=== PATIENT | female | born 1990 | race Caucasian/White ===

== ENCOUNTER 2016-06-28 18:17 | Emergency (ER) | payer OTHER ==
[~2016-06-28] VITALS: Ht 152.4 cm; Wt 79.0 kg
[2016-06-28 18:30] VITALS: Ht 152.4 cm; Wt 79.0 kg
[2016-06-28] MEDS ORDERED: HYDROCODONE/APAP (5/325) TAB PO ONE (21:00)
[2016-06-28] MEDS ORDERED: SOD CHLORIDE 0.9% 1,000 ML IV ONE (21:00)
[2016-06-28] MEDS ORDERED: ACETAMINOPHEN 500 MG TAB PO STA ×2 (21:02→21:26)
[2016-06-28 21:25] LABS: URINE BLOOD (Dip) POC Trace-intact (NEGATIVE)
[2016-06-28] MEDS ORDERED: ACETAMINOPHEN 500 MG TAB ONE (21:27)
[2016-06-28 22:46] VITALS: BP 104/52; TEMP 99.2
[2016-06-28] MEDS ORDERED: SULF1TAB31 PO (22:51)
[2016-06-28] MEDS ORDERED: CEPH-443 PO (22:51)
[2016-06-28] MEDS ORDERED: HYDR-906 PO (22:52)
--- NOTE | 2016-06-28 23:32 | ERD ---
ER Documentation Chief Complaint Date/Time DATE: 06/28/16 TIME: 23:29 Chief Complaint swelling/pain left side of vaginal area x 2 days HPI Patient is a 25-year-old female who presents to the ED with vaginal swelling 2 days. She states that she has erythema and swelling to the left side of her outer vagina. She denies fever or chills. Denies abdominal pain, nausea, vomiting or diarrhea. She states that she has never had this in the past. She denies dysuria urgency. Denies back pain. She states that she is sexually active with her female partner. Denies abnormal vaginal discharge. Denies rashes. Denies headache or dizziness. No other complaints. ROS All systems reviewed and are negative except as per history of present illness. Medications Home Meds Active Scripts Hydrocodone/Acetaminophen (Duncan 5-325 Tablet) 1 Each Tablet, 1 TAB PO Q6H Y for PAIN, #7 TAB Prov:BIANCA JARAMILLO PA-C 06/28/16 Cephalexin* (Keflex*) 500 Mg Capsule, 500 MG PO QID for 5 Days, CAP Prov:BIANCA JARAMILLO PA-C 06/28/16 Sulfamethoxazole/Trimethoprim (Bactrim Ds Tablet) 1 Each Tablet, 1 EACH PO BID for 5 Days, TAB Prov:BIANCA JARAMILLO PA-C 06/28/16 Allergies Allergies: Coded Allergies: No Known Drug Allergies (Verified Allergy, Unknown, 06/28/16) PMhx/Soc Medical and Surgical Hx: pt denies Medical Hx, pt denies Surgical Hx History of Surgery: No Anesthesia Reaction: No Hx Neurological Disorder: No Hx Respiratory Disorders: No Hx Cardiac Disorders: No Hx Psychiatric Problems: No Hx Miscellaneous Medical Probl: No Hx Alcohol Use: No Hx Substance Use: Yes (MARIJUANA "OCCASSIONALLY") Hx Tobacco Use: No Smoking Status: Never smoker FmHx Family History: No coronary disease, No diabetes, No other Physical Exam Vitals Vital Signs Date Time Temp Pulse Resp B/P Pulse Ox O2 Delivery O2 Flow Rate FiO2 06/28/16 22:46 99.2 104/52 99 Room Air 06/28/16 18:30 100.8 121 20 128/82 100 Physical Exam GENERAL: Well-developed, well-nourished female. Appears in no acute distress. HEAD: Normocephalic, atraumatic. EYES: Pupils are equally reactive bilaterally. EOMs grossly intact. No conjunctival erythema. ENT: Moist mucous membranes. No uvula deviation. No kissing tonsils. No exudates. NECK: Supple. No lymphadenopathy or thyromegaly. No meningismus. negative kernig. negative brudinski. LUNG: Clear to auscultation bilaterally. No rhonchi, wheezing, rales or coarse breath sounds. HEART: Regular rate and rhythm. No murmurs, rubs or gallops. : Erythematous and swollen labia majora. With mild induration and fluctuance. Extremities: Equal pulses bilaterally. No peripheral clubbing, cyanosis or edema. No unilateral leg swelling. NEUROLOGIC: Alert and oriented. Moving all four extremities. 5/5 strength in all extremities. Normal speech. Steady gait. SKIN: Normal color. Warm and dry. No rashes or lesions. Capillary refill < 2 seconds Results 24 hrs Laboratory Tests Test 06/28/16 21:25 Bedside Urine pH (LAB) 5.5 Bedside Urine Protein (LAB) Trace Bedside Urine Glucose (UA) Negative Bedside Urine Ketones (LAB) Negative Bedside Urine Blood Trace-intact Bedside Urine Nitrite (LAB) Negative Bedside Urine Leukocyte Esterase (L 1+ Current Medications Medications (Trade) Dose Ordered Sig/Ammon Route PRN Reason Start Time Stop Time Status Last Admin Dose Admin Sodium Chloride (NS) 1,000 ml @ 1,000 mls/hr Q1H ONCE IV 06/28/16 21:00 06/28/16 21:59 DC 06/28/16 21:15 Acetaminophen/ Hydrocodone Bitart (Duncan (5/325)) 1 tab ONCE ONCE PO 06/28/16 21:00 06/28/16 21:03 DC Acetaminophen (Tylenol Tab) 1,000 mg ONCE STAT PO 06/28/16 21:02 06/28/16 21:19 DC Acetaminophen (Tylenol Tab) 1,000 mg ONCE STAT PO 06/28/16 21:26 06/28/16 21:27 DC 06/28/16 21:29 Acetaminophen (Tylenol Tab) 500 mg STK-MED ONCE .ROUTE 06/28/16 21:27 06/28/16 21:28 DC Procedures/MDM ER COURSE: I kept the patient and/or family informed of laboratory and diagnostic imaging results throughout the emergency room course. PROCEDURES IV fluids, Tylenol. Tolerated well with no adverse reaction. Seen improvement in symptoms. MEDICAL DECISION MAKING: This is a 25-year-old who presents with swelling to her labia majora. Vital signs were reviewed. Patient has temperature 100.8 here in the ED. Patient is not hypoxic. Patient has a Bartholin's cyst. I did offer an incision and drainage here in the ED. Patient refused and stated that she would like to try antibiotics prior to doing incision and duration. She stated that she would follow-up with her supervisor taping. She states that she did not want any procedure done today. Low suspicion for necrotizing fasciitis, SJS, toxic epidermal necrolysis, Kawasaki, erythema multiforme, gangrene, scarlet fever, meningococcemia, sepsis, anaphylaxis, sepsis, deep space infection, or foreign body. After administration of fluid and Tylenol, patient stated improvement in symptoms, her temperature is down trending DISCHARGE: At this time, patient is stable for discharge and outpatient management with no new complaints during the ER course. Patient was sent home with Duncan for pain, Keflex and Bactrim and to do warm sitz bath. I advised patient to return in 2 days for wound check and possible I&D. Patient will be discharged home with instructions to recheck for new or worsening symptoms such as fever, nausea, weakness, LOC and to follow up with primary care in the next 1-2 days. Patient was advised to return to the ER for any new or worsening symptoms. Plan was discussed and patient and/or family understands and agrees. Home instructions were given. Departure Diagnosis: Primary Impression: Bartholin cyst Condition: Stable Patient Instructions: Bartholin's Cyst (I And D) Referrals: LUZ ALLRED MD, MEE SOOK MD [facility] YOU HAVE RECEIVED A MEDICAL SCREENING EXAM AND THE RESULTS INDICATE THAT YOU DO NOT HAVE A CONDITION THAT REQUIRES URGENT TREATMENT IN THE EMERGENCY DEPARTMENT. FURTHER EVALUATION AND TREATMENT OF YOUR CONDITION CAN WAIT UNTIL YOU ARE SEEN IN YOUR DOCTORS OFFICE WITHIN THE NEXT 1-2 DAYS. IT IS YOUR RESPONSIBILITY TO MAKE AN APPOINTMENT FOR FOLOW-UP CARE. IF YOU HAVE A PRIMARY DOCTOR --you should call your primary doctor and schedule an appointment IF YOU DO NOT HAVE A PRIMARY DOCTOR YOU CAN CALL OUR PHYSICIAN REFERRAL HOTLINE AT IF YOU CAN NOT AFFORD TO SEE A PHYSICIAN YOU CAN CHOSE FROM THE FOLLOWING [facility] [address] [facility]. [facility] [address] [facility]. [facility] [address] [facility]. [facility] [address] [facility]. [facility] [address] [facility]. [facility] [address] [place] [facility] Hours: 8:00 am - 5:00 pm Additional Instructions: Call your primary care doctor TOMORROW for an appointment during the next 1-2 days.See the doctor sooner or return here if your condition worsens before your appointment time. return in 2 days for wound check. follow up with gynecology BIANCA JARAMILLO PA-C Jun 28, 2016 23:32
== END 2016-06-28 23:33 | disposition home or self-care (01) ==
LOC: FTE 18:17
DX: N75.0 Cyst of Bartholin's gland (principal)
CPT/HCPCS: 81003; J7030; Z7610